=== PATIENT | female | born 1960 | race African-American/Black ===

== ENCOUNTER 2017-03-12 10:55 | Emergency (ER) | payer MEDICAID, OTHER ==
[~2017-03-12] VITALS: Ht 157.5 cm; Wt 68.0 kg
[2017-03-12] MEDS ORDERED: KETOROLAC TROMETH 60MG/2ML VIAL IM ONE (11:45)
[2017-03-12 14:30] VITALS: BP 119/79
== END 2017-03-12 14:29 | disposition home or self-care (01) ==
LOC: ER 10:55
DX: S20.219A Contusion of unspecified front wall of thorax, initial encounter (principal); S80.02XA Contusion of left knee, initial encounter; S80.01XA Contusion of right knee, initial encounter; V43.52XA Car driver injured in collision with other type car in traffic accident, initial encounter; Y93.89 Activity, other specified; Y92.488 Other paved roadways as the place of occurrence of the external cause; Y99.8 Other external cause status; Z88.0 Allergy status to penicillin
CPT/HCPCS: 71120; 73000; 73564; 96372; 99284; J1885